=== PATIENT | male | born 1965 | race African-American/Black ===

== ENCOUNTER 2019-08-21 13:40 | Inpatient (IN) | payer OTHER ==
--- NOTE | 2019-08-21 14:25 | BHS.RME ---
Substance Use & Tx History - Substance Use History Alcohol Substance amount: one pint Rum, 6 x 12 ounce beer Frequency of use: Daily Substance route: Oral Date of Last Use: 08/20/19 Opiates (Heroin) Substance amount: 13 bags Frequency of use: Daily Substance route: Inhalation (ex: sniffing or snorting) Date of Last Use: 08/21/19 Cocaine (Crack) Substance amount: $20 Frequency of use: Once a month Substance route: Smoking Date of Last Use: 08/17/19 Physical/Psych/Mental Status - Behavior General Behavior: Decreased activity Eye Contact: Normal - Cooperativeness Cooperativeness: Cooperative - Thinking Thought Processes: Tight Thought content: Future oriented - Physical Health Problems Is patient presently having any pain?: No Does patient presently have any injuries (include location): No Does patient currently have a fever: No COWS - Scale Resting Pulse: 0= [place] 80 or Below Sweatin=Flushed/Facial Moisture Restless Observation: 0= Sits Still Pupil Size: 0= Normal to Room Light Bone or Joint Aches: 1= Mild Discomfort Runny Nose/ Eye Tearin= None GI Upset > 30mins: 0= None Tremor Observation: 1= Tremor [place], Not Seen Yawning Observation: 1= 1-2x During Session Anxiety or Irritability: 1=Feels Anxious/Irritable Goose Flesh Skin: 0=Smooth Skin COWS Score: 6 CIWA Nausea/Vomitin-No Nausea/No Vomiting Muscle Tremors: None Anxiety: 1-Mildly Anxious Agitation: 0-Normal Activity Paroxysmal Sweats: 3 Orientation: 2-Disoriented Date<2 days Tacttile Disturbances: 0-None Auditory Disturbances: 0-None Visual Disturbances: 0-None Headache: 0-None Present CIWA-Ar Total Score: 6
--- NOTE | 2019-08-21 15:43 | HP ---
COWS - Scale Resting Pulse: 0= [place] 80 or Below Sweatin= Beads of Sweat on Face Restless Observation: 1= Difficult to Sit Still Pupil Size: 1= Pupils >than Normal Bone or Joint Aches: 1= Mild Discomfort Runny Nose/ Eye Tearin= Runny Nose/Eyes GI Upset > 30mins: 1= Stomach Cramp Tremor Observation: 2= Slight Tremor Visible Yawning Observation: 2= >3x During Session Anxiety or Irritability: 1=Feels Anxious/Irritable Goose Flesh Skin: 0=Smooth Skin COWS Score: 14 CIWA Score Nausea/Vomitin-Mild Nausea/No Vomiting Muscle Tremors: 3 Anxiety: 2 Agitation: 2 Paroxysmal Sweats: 4-Forehead w/Sweat Beads Orientation: 2-Disoriented Date<2 days Tacttile Disturbances: 0-None Auditory Disturbances: 0-None Visual Disturbances: 0-None Headache: 0-None Present CIWA-Ar Total Score: 14 - Admission Criteria [facility]ASAS Guidelines: Admission for Medically Managed Detox: Requires at least one of the followin. CIWA greater than 12 2. Seizures within the past 24 hours 3. Delirium tremens within the past 24 hours 4. Hallucinations within the past 24 hours 5. Acute intervention needed for co occurring medical disorder 6. Acute intervention needed for co occurring psychiatric disorder 7. Severe withdrawal that cannot be handled at a lower level of care (continued vomiting, continued diarrhea, abnormal vital signs) requiring intravenous medication and/or fluids 8. Admitting History and Physical - Admission Chief Complaint: " I want to get off drugs and stop using." History of Present Illness: 53 year old male with history of alcohol dependence and opioid dependence and crack use disorder. He was last in detox in 04/2019 at [facility] and then relapsed in 06/2019. He is seeking detox and then wants to go immediately to the [facility] long-term program in rehab. Alcohol: 1 pint rum and 6 pack of beers daily, started drinking at age 20 and last drank last night. 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 Heroin: 13 bags of heroin intranasally since the age of [age] years old, last used this morning and denies overdose Crack: $20 once per month, smoking since age 41 years old and last used 3-4 days ago PMH: None Psurg: None Psych: None He is homeless and sometimes lives with sister. He has no legal issues pending. CIWA and COWS are much higher now than on first coming in. He meets criteria for detox due to homelessness and high risk for relapse due to poor environment for recovery and having poor support systems in place for recovery. 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 History of Recent Travel: No Patient History - Patient Medical History Hx Anemia: No Hx Asthma: No Hx Chronic Obstructive Pulmonary Disease (COPD): No Hx Cancer: No Hx Cardiac Disorders: No Hx Congestive Heart Failure: No Hx Hypertension: No Hx Hypercholesterolemia: No Hx Pacemaker: No HX Cerebrovascular Accident: No Hx Seizures: No Hx Dementia: No Hx Diabetes: No Hx Gastrointestinal Disorders: No Hx Liver Disease: No Hx Genitourinary Disorders: No Hx Sexually Transmitted Disorders: No Hx Renal Disease (ESRD): No Hx Thyroid Disease: No Hx Human Immunodeficiency Virus (HIV): No Hx Hepatitis C: No Hx Depression: No Hx Suicide Attempt: No Hx Bipolar Disorder: No Hx Schizophrenia: No - Patient Surgical History Past Surgical History: No - PPD History Previous Implant?: Yes Documented Results: Negative w/o proof Implanted On Prior [facility] Admission?: No Date: 04/16/19 ([facility]) Results: negative PPD to be Administered?: Yes - Smoking Cessation Smoking history: Current every day smoker Have you smoked in the past 12 months: Yes Aproximately how many cigarettes per day: 2 Hx Chewing Tobacco Use: No Initiated information on smoking cessation: Yes 'Breaking Loose' booklet given: 08/21/19 - Substances abused Alcohol Substance route: Oral Amount used: 1 pint rum and beers Age of first use: 20 Date of last use: 08/20/19 Heroin Substance route: Inhalation Frequency: Daily Amount used: 13 bags Age of first use: 37 Date of last use: 08/21/19 Crack Substance route: Smoking Frequency: Daily Amount used: $20 Age of first use: 41 Date of last use: 08/18/19 Admission Physical Exam [facility] - Physical General Appearance: Yes: Mild Distress, Moderate Distress, Tremorous, Irritable, Sweating, Anxious HEENTM: Yes: EOMI, Hearing grossly Normal, Normal ENT Inspection, Normocephalic, Normal Voice, DONNY, Pharynx Normal, Tm's normal Respiratory: Yes: Chest Non-Tender, Lungs Clear, Normal Breath Sounds, No Respiratory Distress, No Accessory Muscle Use Neck: Yes: No masses,lesions,Nodules, Trachea in good position Breast: Yes: Within Normal Limits Cardiology: Yes: Regular Rhythm, Regular Rate, S1, S2 Abdominal: Yes: Normal Bowel Sounds, Non Tender, Flat, Soft Genitourinary: Yes: Within Normal Limits Back: Yes: Normal Inspection Musculoskeletal: Yes: full range of Motion, Gait Steady, Pelvis Stable Extremities: Yes: Normal Capillary Refill, Normal Inspection, Normal Range of Motion, Non-Tender Neurological: Yes: bread baker II-XII NML intact, Fully Oriented, Alert, Motor Strength 5/5, Normal Mood/Affect, Normal Response Integumentary: Yes: Normal Color, Dry, Warm Lymphatic: Yes: Within Normal Limits - Diagnostic (1) Nicotine dependence Current Visit: Yes Status: Acute (2) Cocaine use disorder Current Visit: Yes Status: Acute (3) Alcohol dependence with withdrawal Current Visit: Yes Status: Acute (4) Opioid dependence with withdrawal Current Visit: Yes Status: Acute Cleared for Admission [facility] - Detox or Rehab [facility] Level of Care: Medically Managed Detox Regimen/Protocol: Methadone/Librium Claeared for Rehab Admission: No Screened but not Admitted - Documentation of Visit Screened but not Admitted: No Inpatient Rehab Admission - Rehab Decision to Admit Inpatient rehab admission?: No
[2019-08-21] MEDS ORDERED: MENTHOL/PHENOL 1 EACH UD MM PRN (15:50)
[2019-08-21] MEDS ORDERED: NICOTINE POLACRILEX 2 MG GUM BUC PRN (15:50)
[2019-08-21] MEDS ORDERED: cloNIDine HCL 0.1 MG TABLET PO PRN (15:50)
[2019-08-21] MEDS ORDERED: ACETAMINOPHEN 325 MG TABLET (FP) PO PRN ×2 (15:50)
[2019-08-21] MEDS ORDERED: MAG HYDROX/AL HYDROX/SIMETH 30 ML UNIT-DOSE CUP PO PRN (15:50)
[2019-08-21] MEDS ORDERED: MAGNESIUM HYDROX 2400MG/30ML ORAL SUSPENSION 30 ML CUP PO PRN (15:50)
[2019-08-21] MEDS ORDERED: METHOCARBAMOL 500 MG TABLET PO PRN (15:50)
[2019-08-21] MEDS ORDERED: BISMUTH SUBSALICYLATE 524 MG/30 ML UD PO PRN (15:50)
[2019-08-21] MEDS ORDERED: MAGNESIUM CITRATE 300 ML BOTTLE PO PRN (15:50)
[2019-08-21] MEDS ORDERED: chlordiazePOXIDE HCL 25 MG CAPSULE PO PRN (15:50)
[2019-08-21] MEDS ORDERED: IBUPROFEN 400 MG TABLET (FP) PO PRN (15:50)
[2019-08-21 16:42] VITALS: BMI 24.3
[2019-08-21] MEDS ORDERED: METHADONE HCL 10 MG TABLET (FOR DETOX USE ONLY) PO ONE (17:15)
[2019-08-21] MEDS ORDERED: ONDANSETRON *ODT* 4 MG TABLET SL ONE (17:15)
[2019-08-21] MEDS: PRENATAL VITAMINS W/ FOLIC ACID TABLET (FP) PO SCH (18:00)
[2019-08-21] MEDS: chlordiazePOXIDE HCL 25 MG CAPSULE PO SCH ×2 (18:01→22:11)
[2019-08-21] MEDS: hydrOXYzine PAMOATE 25 MG CAPSULE (FP) PO SCH ×2 (18:03→22:11)
[2019-08-21] MEDS: NICOTINE 7 MG/24 HOURS TOPICAL PATCH TD SCH (18:03)
[2019-08-21] MEDS: MELATONIN 5 MG TABLETS PO SCH (22:10)
[2019-08-21] MEDS: THIAMINE HCL 100 MG TABLET (FP) PO SCH (22:10)
[2019-08-22] MEDS: hydrOXYzine PAMOATE 25 MG CAPSULE (FP) PO SCH ×5 (05:36→22:12)
[2019-08-22] MEDS: chlordiazePOXIDE HCL 25 MG CAPSULE PO SCH ×4 (05:37→22:12)
[2019-08-22] MEDS ORDERED: METHADONE HCL 10 MG TABLET (FOR DETOX USE ONLY) ONE (09:15)
[2019-08-22] MEDS ORDERED: METHADONE HCL 5 MG TABLET (FOR DETOX USE ONLY) ONE (09:15)
[2019-08-22] MEDS ORDERED: METHADONE (DETOX) 20 MG, METHADONE (DETOX) 5 MG PO ONE (10:00)
--- NOTE | 2019-08-22 10:24 | EKG ---
Test Reason : Blood Pressure : / mmHG Vent. Rate : 063 BPM Atrial Rate : 063 BPM P-R Int : 154 ms QRS Dur : 098 ms QT Int : 400 ms P-R-T Axes : 070 038 027 degrees QTc Int : 409 ms NORMAL SINUS RHYTHM MINIMAL VOLTAGE CRITERIA FOR LVH, MAY BE NORMAL VARIANT BORDERLINE ECG NO PREVIOUS ECGS AVAILABLE Confirmed by MD NITESH, BRANDI ([id number]) on 08/22/2019 10:23:47 AM Referred By: Confirmed By:BRANDI DOWLING MD
[2019-08-22] MEDS: PRENATAL VITAMINS W/ FOLIC ACID TABLET (FP) PO SCH (10:36)
[2019-08-22] MEDS: NICOTINE 7 MG/24 HOURS TOPICAL PATCH TD SCH (10:38)
[2019-08-22 10:47] LABS: HEMATOCRIT 37.2 % (35.4-49); HEMOGLOBIN 12.9 GM/dL (11.7-16.9); MCH 34.6 pg (25.7-33.7); MCHC 34.7 g/dl (32.0-35.9); MEAN CELL VOLUME 99.5 fl (80-96); MEAN PLT VOLUME 9.1 fl (7.5-11.1); PLATELET COUNT 211 K/MM3 (134-434); RBC 3.74 M/mm3 (4.00-5.60); RDW 13.9 % (11.9-15.9); WHITE BLOOD COUNT 4.7 K/mm3 (4.0-10.0)
[2019-08-22 10:49] LABS: ALBUMIN 3.2 g/dl (3.4-5.0); BILIRUBIN,TOTAL 0.3 mg/dL (0.2-1); BLOOD UREA NITROGEN 13.1 mg/dL (7-18); CALCIUM 8.9 mg/dL (8.5-10.1); CREATININE 0.9 mg/dL (0.55-1.3); POTASSIUM 4.1 mmol/L (3.5-5.1); TOT PROT 5.9 g/dl (6.4-8.2)
--- NOTE | 2019-08-22 11:58 | PN ---
[facility] CIWA - CIWA Score Nausea/Vomitin-Mild Nausea/No Vomiting Muscle Tremors: 3 Anxiety: 2 Agitation: 0-Normal Activity Paroxysmal Sweats: 2 Orientation: 0-Oriented Tacttile Disturbances: 0-None Auditory Disturbances: 0-None Visual Disturbances: 2-Mild Sensitivity Headache: 1-Very Mild CIWA-Ar Total Score: 11 S COWS - Scale Resting Pulse: 0= [place] 80 or Below Sweatin= Chills/Flushing Restless Observation: 0= Sits Still Pupil Size: 1= Pupils >than Normal Bone or Joint Aches: 1= Mild Discomfort Runny Nose/ Eye Tearin= Nasal Congestion GI Upset > 30mins: 2= Nausea/Diarrhea Tremor Observation of Outstretched Hands: 2= Slight Tremor Visible Yawning Observation: 1= 1-2x During Session Anxiety or Irritability: 2=Irritable/Anxious Goose Flesh Skin: 0=Smooth Skin COWS Score: 11 [facility] Progress Note (SOAP) Subjective: 53 years old male admitted on 08/21/19 for alcohol and opiate withdrawal sx management treating with librium and methadone detox regiments ate breakfast and lunch in room tolerated food and fluid well feeling tired limited conversation with staff Objective: 08/22/19 12:01 Vital Signs Temperature 97 F L 08/22/19 08:52 Pulse Rate 61 08/22/19 08:52 Respiratory Rate 20 08/22/19 08:52 Blood Pressure 118/65 08/22/19 08:52 O2 Sat by Pulse Oximetry (%) 95 08/22/19 06:40 Laboratory Last Values WBC 4.7 K/mm3 (4.0-10.0) 08/22/19 07:30 RBC 3.74 M/mm3 (4.00-5.60) L 08/22/19 07:30 Hgb 12.9 GM/dL (11.7-16.9) 08/22/19 07:30 Hct 37.2 % (35.4-49) 08/22/19 07:30 MCV 99.5 fl (80-96) H 08/22/19 07:30 MCH 34.6 pg (25.7-33.7) H 08/22/19 07:30 MCHC 34.7 g/dl (32.0-35.9) 08/22/19 07:30 RDW 13.9 % (11.9-15.9) 08/22/19 07:30 Plt Count 211 K/MM3 (134-434) 08/22/19 07:30 MPV 9.1 fl (7.5-11.1) 08/22/19 07:30 Sodium 141 mmol/L (136-145) 08/22/19 07:30 Potassium 4.1 mmol/L (3.5-5.1) 08/22/19 07:30 Chloride 109 mmol/L (98-107) H 08/22/19 07:30 Carbon Dioxide 27 mmol/L (21-32) 08/22/19 07:30 Anion Gap 6 MMOL/L (8-16) L 08/22/19 07:30 BUN 13.1 mg/dL (7-18) 08/22/19 07:30 Creatinine 0.9 mg/dL (0.55-1.3) 08/22/19 07:30 Est GFR (CKD-EPI)AfAm 113.41 08/22/19 07:30 Est GFR (CKD-EPI)NonAf 97.85 08/22/19 07:30 Random Glucose 90 mg/dL (74-106) 08/22/19 07:30 Calcium 8.9 mg/dL (8.5-10.1) 08/22/19 07:30 Total Bilirubin 0.3 mg/dL (0.2-1) 08/22/19 07:30 AST 12 U/L (15-37) L 08/22/19 07:30 ALT 14 U/L (13-61) 08/22/19 07:30 Alkaline Phosphatase 94 U/L (45-117) 08/22/19 07:30 Total Protein 5.9 g/dl (6.4-8.2) L 08/22/19 07:30 Albumin 3.2 g/dl (3.4-5.0) L 08/22/19 07:30 lab noted Assessment: 08/22/19 12:02 alcohol and opiate withdrawal Plan: librium and methadone regiments
[2019-08-22] MEDS: MELATONIN 5 MG TABLETS PO SCH (22:12)
[2019-08-22] MEDS: THIAMINE HCL 100 MG TABLET (FP) PO SCH (22:12)
[2019-08-23] MEDS: chlordiazePOXIDE HCL 25 MG CAPSULE PO SCH ×4 (05:24→22:36)
[2019-08-23] MEDS: hydrOXYzine PAMOATE 25 MG CAPSULE (FP) PO SCH ×5 (05:24→22:36)
--- NOTE | 2019-08-23 09:48 | PN ---
[facility] CIWA - CIWA Score Nausea/Vomitin-Mild Nausea/No Vomiting Muscle Tremors: 2 Anxiety: 1-Mildly Anxious Agitation: 0-Normal Activity Paroxysmal Sweats: 2 Orientation: 0-Oriented Tacttile Disturbances: 0-None Auditory Disturbances: 0-None Visual Disturbances: 2-Mild Sensitivity Headache: 0-None Present CIWA-Ar Total Score: 8 [facility] COWS - Scale Resting Pulse: 0= [place] 80 or Below Sweatin= Chills/Flushing Restless Observation: 0= Sits Still Pupil Size: 1= Pupils >than Normal Bone or Joint Aches: 1= Mild Discomfort Runny Nose/ Eye Tearin= Nasal Congestion GI Upset > 30mins: 2= Nausea/Diarrhea Tremor Observation of Outstretched Hands: 1= Tremor [place], Not Seen Yawning Observation: 0= None Anxiety or Irritability: 1=Feels Anxious/Irritable Goose Flesh Skin: 0=Smooth Skin COWS Score: 8 S Progress Note (SOAP) Subjective: 53 years old male admitted on 08/21/19 for alcohol and opiate withdrawal sx management treating with librium and methadone detox regiments ate breakfast tolerated food and fluid well less tremor mild general body aches Objective: 08/23/19 09:48 Vital Signs Temperature 97.5 F L 08/22/19 22:00 Pulse Rate 61 08/22/19 22:00 Respiratory Rate 18 08/23/19 03:25 Blood Pressure 112/68 08/22/19 22:00 O2 Sat by Pulse Oximetry (%) 96 08/22/19 22:00 Laboratory Last Values WBC 4.7 K/mm3 (4.0-10.0) 08/22/19 07:30 RBC 3.74 M/mm3 (4.00-5.60) L 08/22/19 07:30 Hgb 12.9 GM/dL (11.7-16.9) 08/22/19 07:30 Hct 37.2 % (35.4-49) 08/22/19 07:30 MCV 99.5 fl (80-96) H 08/22/19 07:30 MCH 34.6 pg (25.7-33.7) H 08/22/19 07:30 MCHC 34.7 g/dl (32.0-35.9) 08/22/19 07:30 RDW 13.9 % (11.9-15.9) 08/22/19 07:30 Plt Count 211 K/MM3 (134-434) 08/22/19 07:30 MPV 9.1 fl (7.5-11.1) 08/22/19 07:30 Sodium 141 mmol/L (136-145) 08/22/19 07:30 Potassium 4.1 mmol/L (3.5-5.1) 08/22/19 07:30 Chloride 109 mmol/L (98-107) H 08/22/19 07:30 Carbon Dioxide 27 mmol/L (21-32) 08/22/19 07:30 Anion Gap 6 MMOL/L (8-16) L 08/22/19 07:30 BUN 13.1 mg/dL (7-18) 08/22/19 07:30 Creatinine 0.9 mg/dL (0.55-1.3) 08/22/19 07:30 Est GFR (CKD-EPI)AfAm 113.41 08/22/19 07:30 Est GFR (CKD-EPI)NonAf 97.85 08/22/19 07:30 Random Glucose 90 mg/dL (74-106) 08/22/19 07:30 Calcium 8.9 mg/dL (8.5-10.1) 08/22/19 07:30 Total Bilirubin 0.3 mg/dL (0.2-1) 08/22/19 07:30 AST 12 U/L (15-37) L 08/22/19 07:30 ALT 14 U/L (13-61) 08/22/19 07:30 Alkaline Phosphatase 94 U/L (45-117) 08/22/19 07:30 Total Protein 5.9 g/dl (6.4-8.2) L 08/22/19 07:30 Albumin 3.2 g/dl (3.4-5.0) L 08/22/19 07:30 HIV Ag/Ab Combo Qual Negative (NEGATIVE) 08/22/19 07:30 lab noted Assessment: 08/23/19 09:49 alcohol and opiate withdrawal Plan: librium and methadone regiments
[2019-08-23] MEDS ORDERED: METHADONE HCL 10 MG TABLET (FOR DETOX USE ONLY) PO ONE (10:00)
[2019-08-23] MEDS: PRENATAL VITAMINS W/ FOLIC ACID TABLET (FP) PO SCH (10:34)
[2019-08-23] MEDS: NICOTINE 7 MG/24 HOURS TOPICAL PATCH TD SCH (10:36)
[2019-08-23] MEDS: MELATONIN 5 MG TABLETS PO SCH (22:35)
[2019-08-23] MEDS: THIAMINE HCL 100 MG TABLET (FP) PO SCH (22:35)
[2019-08-24] MEDS ORDERED: chlordiazePOXIDE HCL 10 MG CAPSULE PO PRN
[2019-08-24] MEDS: chlordiazePOXIDE HCL 10 MG CAPSULE PO SCH ×4 (06:23→22:11)
[2019-08-24] MEDS: hydrOXYzine PAMOATE 25 MG CAPSULE (FP) PO SCH ×5 (06:23→22:11)
[2019-08-24] MEDS ORDERED: METHADONE (DETOX) 10 MG, METHADONE (DETOX) 5 MG PO ONE (10:00)
[2019-08-24] MEDS ORDERED: METHADONE HCL 5 MG TABLET (FOR DETOX USE ONLY) ONE (10:09)
[2019-08-24] MEDS ORDERED: METHADONE HCL 10 MG TABLET (FOR DETOX USE ONLY) ONE (10:09)
[2019-08-24] MEDS: PRENATAL VITAMINS W/ FOLIC ACID TABLET (FP) PO SCH (10:45)
[2019-08-24] MEDS: NICOTINE 7 MG/24 HOURS TOPICAL PATCH TD SCH (10:46)
--- NOTE | 2019-08-24 12:43 | PN ---
[facility] CIWA - CIWA Score Nausea/Vomitin-No Nausea/No Vomiting Muscle Tremors: None Anxiety: 2 Agitation: 1-Slight > Activity Paroxysmal Sweats: No Perspiration Orientation: 2-Disoriented Date<2 days Tacttile Disturbances: 0-None Auditory Disturbances: 0-None Visual Disturbances: 0-None Headache: 0-None Present CIWA-Ar Total Score: 5 S COWS - Scale Resting Pulse: 0= [place] 80 or Below Sweatin= No chills or Flushing Restless Observation: 1= Difficult to Sit Still Pupil Size: 0= Normal to Room Light Bone or Joint Aches: 1= Mild Discomfort Runny Nose/ Eye Tearin= None GI Upset > 30mins: 0= None Tremor Observation of Outstretched Hands: 0= None Yawning Observation: 0= None Anxiety or Irritability: 1=Feels Anxious/Irritable Goose Flesh Skin: 0=Smooth Skin COWS Score: 3 S Progress Note (SOAP) Subjective: Laboratory Tests 08/22/19 08/22/19 08/22/19 07:30 07:30 07:30 WBC 4.7 RBC 3.74 L Hgb 12.9 Hct 37.2 MCV 99.5 H MCH 34.6 H MCHC 34.7 RDW 13.9 Plt Count 211 MPV 9.1 Sodium 141 Potassium 4.1 Chloride 109 H Carbon Dioxide 27 Anion Gap 6 L BUN 13.1 Creatinine 0.9 Est GFR (CKD-EPI)AfAm 113.41 Est GFR (CKD-EPI)NonAf 97.85 Random Glucose 90 Calcium 8.9 Total Bilirubin 0.3 AST 12 L ALT 14 Alkaline Phosphatase 94 Total Protein 5.9 L Albumin 3.2 L RPR Titer Nonreactive HIV Ag/Ab Combo Qual 08/22/19 07:30 WBC RBC Hgb Hct MCV MCH MCHC RDW Plt Count MPV Sodium Potassium Chloride Carbon Dioxide Anion Gap BUN Creatinine Est GFR (CKD-EPI)AfAm Est GFR (CKD-EPI)NonAf Random Glucose Calcium Total Bilirubin AST ALT Alkaline Phosphatase Total Protein Albumin RPR Titer HIV Ag/Ab Combo Qual Negative Vital Signs - 24 hr 08/23/19 08/23/19 08/23/19 12:56 17:36 20:51 Temperature 97.9 F 97.8 F 97.9 F Pulse Rate 65 66 77 Respiratory 18 18 16 Rate Blood Pressure 127/74 123/76 140/77 O2 Sat by Pulse 97 Oximetry (%) 08/23/19 08/24/19 08/24/19 21:45 08:04 08:55 Temperature 97.5 F L 97.7 F Pulse Rate 74 71 Respiratory 16 18 Rate Blood Pressure 112/65 125/73 O2 Sat by Pulse 98 Oximetry (%) PE Gnl: WDWN, in no distress Mental status: awake, alert, nl language Motor: moves limbs well Coordination: normal Objective: 08/24/19 12:42 Laboratory Tests 08/22/19 08/22/19 08/22/19 07:30 07:30 07:30 WBC 4.7 RBC 3.74 L Hgb 12.9 Hct 37.2 MCV 99.5 H MCH 34.6 H MCHC 34.7 RDW 13.9 Plt Count 211 MPV 9.1 Sodium 141 Potassium 4.1 Chloride 109 H Carbon Dioxide 27 Anion Gap 6 L BUN 13.1 Creatinine 0.9 Est GFR (CKD-EPI)AfAm 113.41 Est GFR (CKD-EPI)NonAf 97.85 Random Glucose 90 Calcium 8.9 Total Bilirubin 0.3 AST 12 L ALT 14 Alkaline Phosphatase 94 Total Protein 5.9 L Albumin 3.2 L RPR Titer Nonreactive HIV Ag/Ab Combo Qual 08/22/19 07:30 WBC RBC Hgb Hct MCV MCH MCHC RDW Plt Count MPV Sodium Potassium Chloride Carbon Dioxide Anion Gap BUN Creatinine Est GFR (CKD-EPI)AfAm Est GFR (CKD-EPI)NonAf Random Glucose Calcium Total Bilirubin AST ALT Alkaline Phosphatase Total Protein Albumin RPR Titer HIV Ag/Ab Combo Qual Negative Vital Signs Temperature 97.7 F 08/24/19 08:55 Pulse Rate 71 08/24/19 08:55 Respiratory Rate 18 08/24/19 08:55 Blood Pressure 125/73 08/24/19 08:55 O2 Sat by Pulse Oximetry (%) 98 08/23/19 21:45 PE Gnl: WDWN Mental status: nl Motor; nl coord; nl Assessment: 08/24/19 12:43 1. Alcohol use disorder 2. Opioid use disorder Plan: 1. Librium withdrawal protocol 2. methadone withdrawal protocol 3. pending discharge 08/25
[2019-08-24] MEDS: THIAMINE HCL 100 MG TABLET (FP) PO SCH (22:11)
[2019-08-24] MEDS: MELATONIN 5 MG TABLETS PO SCH (22:13)
[2019-08-25] MEDS: chlordiazePOXIDE HCL 10 MG CAPSULE PO SCH ×2 (06:01→18:08)
[2019-08-25] MEDS: hydrOXYzine PAMOATE 25 MG CAPSULE (FP) PO SCH ×5 (06:02→22:13)
[2019-08-25] MEDS ORDERED: METHADONE HCL 10 MG TABLET (FOR DETOX USE ONLY) PO ONE (10:00)
[2019-08-25] MEDS: NICOTINE 7 MG/24 HOURS TOPICAL PATCH TD SCH (10:41)
[2019-08-25] MEDS: PRENATAL VITAMINS W/ FOLIC ACID TABLET (FP) PO SCH (10:41)
--- NOTE | 2019-08-25 10:41 | PN ---
[facility] CIWA - CIWA Score Nausea/Vomitin-No Nausea/No Vomiting Muscle Tremors: None Anxiety: 2 Agitation: 0-Normal Activity Paroxysmal Sweats: 2 Orientation: 0-Oriented Tacttile Disturbances: 0-None Auditory Disturbances: 0-None Visual Disturbances: 0-None Headache: 0-None Present CIWA-Ar Total Score: 4 S COWS - Scale Resting Pulse: 0= [place] 80 or Below Sweatin= No chills or Flushing Restless Observation: 0= Sits Still Pupil Size: 0= Normal to Room Light Bone or Joint Aches: 1= Mild Discomfort Runny Nose/ Eye Tearin= None GI Upset > 30mins: 0= None Tremor Observation of Outstretched Hands: 0= None Yawning Observation: 0= None Anxiety or Irritability: 2=Irritable/Anxious Goose Flesh Skin: 0=Smooth Skin COWS Score: 3 [facility] Progress Note (SOAP) Subjective: c/o mild withdrawal symptoms. Objective: 08/25/19 10:40 Vital Signs 08/25/19 08/25/19 08/25/19 03:30 06:25 09:20 Temperature 97.5 F L 97.2 F L Pulse Rate 60 78 Respiratory 16 18 16 Rate Blood Pressure 126/74 127/71 O2 Sat by Pulse 99 Oximetry (%) Laboratory Last Values WBC 4.7 K/mm3 (4.0-10.0) 08/22/19 07:30 RBC 3.74 M/mm3 (4.00-5.60) L 08/22/19 07:30 Hgb 12.9 GM/dL (11.7-16.9) 08/22/19 07:30 Hct 37.2 % (35.4-49) 08/22/19 07:30 MCV 99.5 fl (80-96) H 08/22/19 07:30 MCH 34.6 pg (25.7-33.7) H 08/22/19 07:30 MCHC 34.7 g/dl (32.0-35.9) 08/22/19 07:30 RDW 13.9 % (11.9-15.9) 08/22/19 07:30 Plt Count 211 K/MM3 (134-434) 08/22/19 07:30 MPV 9.1 fl (7.5-11.1) 08/22/19 07:30 Sodium 141 mmol/L (136-145) 08/22/19 07:30 Potassium 4.1 mmol/L (3.5-5.1) 08/22/19 07:30 Chloride 109 mmol/L (98-107) H 08/22/19 07:30 Carbon Dioxide 27 mmol/L (21-32) 08/22/19 07:30 Anion Gap 6 MMOL/L (8-16) L 08/22/19 07:30 BUN 13.1 mg/dL (7-18) 08/22/19 07:30 Creatinine 0.9 mg/dL (0.55-1.3) 08/22/19 07:30 Est GFR (CKD-EPI)AfAm 113.41 08/22/19 07:30 Est GFR (CKD-EPI)NonAf 97.85 08/22/19 07:30 Random Glucose 90 mg/dL (74-106) 08/22/19 07:30 Calcium 8.9 mg/dL (8.5-10.1) 08/22/19 07:30 Total Bilirubin 0.3 mg/dL (0.2-1) 08/22/19 07:30 AST 12 U/L (15-37) L 08/22/19 07:30 ALT 14 U/L (13-61) 08/22/19 07:30 Alkaline Phosphatase 94 U/L (45-117) 08/22/19 07:30 Total Protein 5.9 g/dl (6.4-8.2) L 08/22/19 07:30 Albumin 3.2 g/dl (3.4-5.0) L 08/22/19 07:30 RPR Titer Nonreactive (NONREACTIVE) 08/22/19 07:30 HIV Ag/Ab Combo Qual Negative (NEGATIVE) 08/22/19 07:30 Labs noted. Assessment: AOX3, in no acute respiratory distress. Full ROM, ambulating in the unit. Mild Withdrawal symptoms. Plan: continue detox.
[2019-08-25] MEDS: THIAMINE HCL 100 MG TABLET (FP) PO SCH (22:13)
[2019-08-25] MEDS: MELATONIN 5 MG TABLETS PO SCH (22:13)
[2019-08-26] MEDS ORDERED: chlordiazePOXIDE HCL 10 MG CAPSULE PO ONE (05:00)
[2019-08-26] MEDS: hydrOXYzine PAMOATE 25 MG CAPSULE (FP) PO SCH ×5 (05:13→22:43)
[2019-08-26] MEDS ORDERED: METHADONE HCL 5 MG TABLET (FOR DETOX USE ONLY) PO ONE (06:00)
[2019-08-26] MEDS: NICOTINE 7 MG/24 HOURS TOPICAL PATCH TD SCH (10:24)
[2019-08-26] MEDS: PRENATAL VITAMINS W/ FOLIC ACID TABLET (FP) PO SCH (10:24)
--- NOTE | 2019-08-26 11:47 | PN ---
[facility] CIWA - CIWA Score Nausea/Vomitin-No Nausea/No Vomiting Muscle Tremors: 1-None Visible, but [place] Anxiety: 1-Mildly Anxious Agitation: 0-Normal Activity Paroxysmal Sweats: No Perspiration Orientation: 0-Oriented Tacttile Disturbances: 0-None Auditory Disturbances: 0-None Visual Disturbances: 0-None Headache: 0-None Present CIWA-Ar Total Score: 2 S COWS - Scale Resting Pulse: 0= [place] 80 or Below Sweatin= No chills or Flushing Restless Observation: 0= Sits Still Pupil Size: 0= Normal to Room Light Bone or Joint Aches: 0= None Runny Nose/ Eye Tearin= None GI Upset > 30mins: 1= Stomach Cramp Tremor Observation of Outstretched Hands: 0= None Yawning Observation: 0= None Anxiety or Irritability: 1=Feels Anxious/Irritable Goose Flesh Skin: 0=Smooth Skin COWS Score: 2 S Progress Note (SOAP) Subjective: 53 years old male admitted on 08/21/19 for alcohol and opiate withdrawal sx management treating with librium and methadone regiments feeling better today less tremor mild anxiety mild sweating Objective: 08/26/19 11:50 Vital Signs Temperature 97.1 F L 08/26/19 09:02 Pulse Rate 71 08/26/19 09:02 Respiratory Rate 16 08/26/19 09:02 Blood Pressure 131/74 08/26/19 09:02 O2 Sat by Pulse Oximetry (%) 96 08/26/19 06:31 Laboratory Last Values WBC 4.7 K/mm3 (4.0-10.0) 08/22/19 07:30 RBC 3.74 M/mm3 (4.00-5.60) L 08/22/19 07:30 Hgb 12.9 GM/dL (11.7-16.9) 08/22/19 07:30 Hct 37.2 % (35.4-49) 08/22/19 07:30 MCV 99.5 fl (80-96) H 08/22/19 07:30 MCH 34.6 pg (25.7-33.7) H 08/22/19 07:30 MCHC 34.7 g/dl (32.0-35.9) 08/22/19 07:30 RDW 13.9 % (11.9-15.9) 08/22/19 07:30 Plt Count 211 K/MM3 (134-434) 08/22/19 07:30 MPV 9.1 fl (7.5-11.1) 08/22/19 07:30 Sodium 141 mmol/L (136-145) 08/22/19 07:30 Potassium 4.1 mmol/L (3.5-5.1) 08/22/19 07:30 Chloride 109 mmol/L (98-107) H 08/22/19 07:30 Carbon Dioxide 27 mmol/L (21-32) 08/22/19 07:30 Anion Gap 6 MMOL/L (8-16) L 08/22/19 07:30 BUN 13.1 mg/dL (7-18) 08/22/19 07:30 Creatinine 0.9 mg/dL (0.55-1.3) 08/22/19 07:30 Est GFR (CKD-EPI)AfAm 113.41 08/22/19 07:30 Est GFR (CKD-EPI)NonAf 97.85 08/22/19 07:30 Random Glucose 90 mg/dL (74-106) 08/22/19 07:30 Calcium 8.9 mg/dL (8.5-10.1) 08/22/19 07:30 Total Bilirubin 0.3 mg/dL (0.2-1) 08/22/19 07:30 AST 12 U/L (15-37) L 08/22/19 07:30 ALT 14 U/L (13-61) 08/22/19 07:30 Alkaline Phosphatase 94 U/L (45-117) 08/22/19 07:30 Total Protein 5.9 g/dl (6.4-8.2) L 08/22/19 07:30 Albumin 3.2 g/dl (3.4-5.0) L 08/22/19 07:30 RPR Titer Nonreactive (NONREACTIVE) 08/22/19 07:30 HIV Ag/Ab Combo Qual Negative (NEGATIVE) 08/22/19 07:30 lab noted Assessment: 08/26/19 11:51 alcohol and opiate withdrawal Plan: librium and methadone regiments
[2019-08-26] MEDS: MELATONIN 5 MG TABLETS PO SCH (22:43)
[2019-08-26] MEDS: THIAMINE HCL 100 MG TABLET (FP) PO SCH (22:43)
[2019-08-27] MEDS ORDERED: chlordiazePOXIDE 5 MG CAPSULE PO ONE (05:00)
[2019-08-27] MEDS: hydrOXYzine PAMOATE 25 MG CAPSULE (FP) PO SCH ×2 (05:40→10:50)
[2019-08-27 10:01] VITALS: BP 125/78; PULSE 75; TEMP 97.6
[2019-08-27] MEDS: PRENATAL VITAMINS W/ FOLIC ACID TABLET (FP) PO SCH (10:50)
[2019-08-27] MEDS: NICOTINE 7 MG/24 HOURS TOPICAL PATCH TD SCH (10:51)
--- NOTE | 2019-08-27 10:59 | DS ---
[facility] Detox Discharge Summary Admission Date: 08/21/19 Discharge Date: 08/27/19 - History Present History: Alcohol Dependence, Opioid Dependence Pertinent Past History: Pt admitted for dual detox- completed detox protocols. Pt would like to go to rehab-talking to counselor Vital Signs - 24 hr 08/26/19 08/26/19 08/26/19 12:57 16:52 20:52 Temperature 97.4 F L 98.6 F 97.0 F L Pulse Rate 70 71 78 Respiratory 16 16 18 Rate Blood Pressure 119/69 134/77 125/79 O2 Sat by Pulse 96 97 Oximetry (%) 08/27/19 08/27/19 08/27/19 00:27 03:30 06:37 Temperature 97.1 F L Pulse Rate 103 H Respiratory 18 18 18 Rate Blood Pressure 129/68 O2 Sat by Pulse 98 Oximetry (%) 08/27/19 08:45 Temperature 97.6 F Pulse Rate 75 Respiratory 18 Rate Blood Pressure 125/78 O2 Sat by Pulse Oximetry (%) Laboratory Tests 08/22/19 08/22/19 08/22/19 07:30 07:30 07:30 WBC 4.7 RBC 3.74 L Hgb 12.9 Hct 37.2 MCV 99.5 H MCH 34.6 H MCHC 34.7 RDW 13.9 Plt Count 211 MPV 9.1 Sodium 141 Potassium 4.1 Chloride 109 H Carbon Dioxide 27 Anion Gap 6 L BUN 13.1 Creatinine 0.9 Est GFR (CKD-EPI)AfAm 113.41 Est GFR (CKD-EPI)NonAf 97.85 Random Glucose 90 Calcium 8.9 Total Bilirubin 0.3 AST 12 L ALT 14 Alkaline Phosphatase 94 Total Protein 5.9 L Albumin 3.2 L RPR Titer Nonreactive HIV Ag/Ab Combo Qual 08/22/19 07:30 WBC RBC Hgb Hct MCV MCH MCHC RDW Plt Count MPV Sodium Potassium Chloride Carbon Dioxide Anion Gap BUN Creatinine Est GFR (CKD-EPI)AfAm Est GFR (CKD-EPI)NonAf Random Glucose Calcium Total Bilirubin AST ALT Alkaline Phosphatase Total Protein Albumin RPR Titer HIV Ag/Ab Combo Qual Negative Home Medication List Medication Instructions Recorded Confirmed Type NK [No Known Home Medication] 08/21/19 08/21/19 History Active Medications Generic Name Dose Route Start Last Admin Trade Name Freq PRN Reason Stop Dose Admin Acetaminophen 650 mg 08/21/19 15:50 Tylenol - PO Q6H PRN PAIN LEVEL 4 - 6 Acetaminophen 650 mg 08/21/19 15:50 Tylenol - PO Q6H PRN FEVER Al Hydroxide/Mg Hydroxide 30 ml 08/21/19 15:50 Mylanta Oral Suspension - PO Q6H PRN DYSPEPSIA Bismuth Subsalicylate 524 mg 08/21/19 15:50 Pepto-Bismol - PO Q1H PRN DIARRHEA Eucalyptus/Menthol/Phenol/Sorbitol 1 each 08/21/19 15:50 Cepastat Lozenge - MM 08/27/19 15:50 Q4H PRN SORE THROAT Hydroxyzine Pamoate 25 mg 08/21/19 18:00 08/27/19 10:50 Vistaril - PO 08/27/19 15:50 25 mg Q4HWA JAYRO Administration Ibuprofen 400 mg 08/21/19 15:50 Motrin - PO Q6H PRN PAIN LEVEL 1 - 3 Magnesium Citrate 300 ml 08/21/19 15:50 Citroma - PO Q48H PRN CONSTIPATION Magnesium Hydroxide 30 ml 08/21/19 15:50 Milk Of Magnesia - PO PRN PRN CONSTIPATION Melatonin 5 mg 08/21/19 22:00 08/26/19 22:43 Melatonin PO 5 mg HS JAYRO Administration Methocarbamol 500 mg 08/21/19 15:50 Robaxin - PO 08/27/19 15:50 Q6H PRN MUSCLE SPASMS Nicotine 7 mg 08/21/19 17:15 08/27/19 10:51 Nicoderm Patch - TD Not Given DAILY JAYRO Nicotine Polacrilex 2 mg 08/21/19 15:50 Nicorette Gum - BUC Q2H PRN NICOTINE REPLACEMENT RX Multivit/Folic Acid/Iron 1 tab 08/21/19 16:00 08/27/19 10:50 Vitamins (Sjr) - PO 1 tab DAILY JAYRO Administration Thiamine HCl 100 mg 08/21/19 22:00 08/26/19 22:43 Vitamin B1 - PO 100 mg HS JAYRO Administration a/p: OUD- pt will consider rn long term care MAT with Suboxone - Physical Exam Results Vital Signs: Vital Signs Temperature 97.6 F 08/27/19 08:45 Pulse Rate 75 08/27/19 08:45 Respiratory Rate 18 08/27/19 08:45 Blood Pressure 125/78 08/27/19 08:45 O2 Sat by Pulse Oximetry (%) 98 08/27/19 06:37 - Treatment Hospital Course: Detox Protocol Followed, Detoxed Safely, Responded well, Discharged Condition Good, Rehab Referral Accepted - Medication Discharge Medications: Ambulatory Orders NK [No Known Home Medication] 08/21/19 - AMA Did Patient Leave Against Medical Advice: No
== END 2019-08-27 13:00 | disposition home or self-care (01) | DRG 773 ==
LOC: YASAS 13:40 → Y3N 16:44
PROVIDERS: ADMIT Allergy & Immunology; ATTEND Allergy & Immunology
PROC: HZ2ZZZZ Detoxification Services for Substance Abuse Treatment (ICD-10-PCS; principal; 2019-08-21)
DX: F10.230 Alcohol dependence with withdrawal, uncomplicated (principal); F11.23 Opioid dependence with withdrawal; F14.10 Cocaine abuse, uncomplicated; F17.210 Nicotine dependence, cigarettes, uncomplicated; Z59.0 Homelessness
CPT/HCPCS: 36415; 80053; 85027; 86593; 87389; 93005; 93010

== ENCOUNTER 2022-07-18 12:31 | Inpatient (IN) | payer OTHER ==
[2022-07-18 14:31] VITALS: BMI 23.1
[2022-07-18] MEDS ORDERED: BISMUTH SUBSALICYLATE 524 MG/30 ML PO PRN (17:16)
[2022-07-18] MEDS ORDERED: IBUPROFEN 600 MG TABLET (FP) PO PRN (17:16)
[2022-07-18] MEDS ORDERED: NALOXONE HCL (KLOXXADO) 8 MG SPRAY NS PRN (17:16)
[2022-07-18] MEDS ORDERED: BENZOCAINE/MENTHOL (CHLORASEPTIC ) LOZENGE MM PRN (17:16)
[2022-07-18] MEDS ORDERED: MAG HYDROX/AL HYDROX/SIMETH 30 ML UNIT-DOSE CUP PO PRN (17:16)
[2022-07-18] MEDS ORDERED: MAGNESIUM HYDROX 2400MG/30ML ORAL SUSPENSION 30 ML CUP PO PRN (17:16)
[2022-07-18] MEDS ORDERED: POLYETHYLENE GLYCOL (HEALTHYLAX) 3350 17 GM PACKET PO PRN (17:16)
[2022-07-18] MEDS ORDERED: cloNIDine HCL 0.1 MG TABLET PO PRN (17:16)
[2022-07-18] MEDS ORDERED: chlordiazePOXIDE HCL 25 MG CAPSULE PO PRN (17:16)
[2022-07-18] MEDS ORDERED: IBUPROFEN 400 MG TABLET (FP) PO PRN (17:16)
[2022-07-18] MEDS ORDERED: ACETAMINOPHEN 325 MG TABLET (FP) PO PRN ×2 (17:16)
[2022-07-18] MEDS ORDERED: NICOTINE 10 MG CARTRIDGE (INHALER) IH PRN (17:16)
[2022-07-18] MEDS ORDERED: LOPERAMIDE HCL 2 MG CAPSULE PO PRN (17:16)
[2022-07-18] MEDS ORDERED: DICYCLOMINE HCL 10 MG CAPSULE PO PRN (17:16)
[2022-07-18] MEDS ORDERED: ONDANSETRON *ODT* 4 MG TABLET SL PRN (17:16)
[2022-07-18] MEDS ORDERED: methaDONE HCL 10 MG TABLET (FOR DETOX USE ONLY) PO ONE (17:45)
[2022-07-18] MEDS: THIAMINE HCL 100 MG TABLET (FP) PO SCH (22:44)
[2022-07-18] MEDS: chlordiazePOXIDE HCL 25 MG CAPSULE PO SCH (22:44)
[2022-07-18] MEDS: MELATONIN 5 MG TABLETS PO SCH (22:46)
[2022-07-19] MEDS: chlordiazePOXIDE HCL 25 MG CAPSULE PO SCH ×4 (06:16→22:31)
[2022-07-19] MEDS: PRENATAL VITAMINS W/ FOLIC ACID TABLET (FP) PO SCH (10:11)
[2022-07-19] MEDS: NICOTINE 14 MG/24 HOURS TOPICAL PATCH TD SCH (10:11)
[2022-07-19 12:10] LABS: HEMATOCRIT 39.4 % (35.4-49); HEMOGLOBIN 13.7 GM/dL (11.7-16.9); MCH 34.4 pg (25.7-33.7); MCHC 34.9 g/dl (32.0-35.9); MEAN CELL VOLUME 98.7 fl (80-96); MEAN PLT VOLUME 8.4 fl (7.5-11.1); PLATELET COUNT 251 10^3/uL (134-434); RBC 3.99 M/mm3 (4.00-5.60); RDW 13.9 % (11.9-15.9)
[2022-07-19] MEDS: amLODIPine BESYLATE 2.5 MG TABLET (FP) PO SCH (12:36)
[2022-07-19 12:39] LABS: ALBUMIN 3.7 g/dl (3.4-5.0); BLOOD UREA NITROGEN 14.1 mg/dL (7-18); CALCIUM 9.3 mg/dL (8.5-10.1)
[2022-07-19 12:42] LABS: CREATININE 0.9 mg/dL (0.55-1.3)
[2022-07-19 12:44] LABS: BILIRUBIN,TOTAL 1.1 mg/dL (0.2-1); TOT PROT 6.6 g/dl (6.4-8.2)
[2022-07-19] MEDS: THIAMINE HCL 100 MG TABLET (FP) PO SCH (22:31)
[2022-07-19] MEDS: MELATONIN 5 MG TABLETS PO SCH (22:31)
[2022-07-20] MEDS: chlordiazePOXIDE HCL 25 MG CAPSULE PO SCH ×4 (06:17→22:25)
[2022-07-20] MEDS ORDERED: methaDONE HCL 10 MG TABLET (FOR DETOX USE ONLY) PO ONE (10:00)
[2022-07-20] MEDS: PRENATAL VITAMINS W/ FOLIC ACID TABLET (FP) PO SCH (10:36)
[2022-07-20] MEDS: NICOTINE 14 MG/24 HOURS TOPICAL PATCH TD SCH (10:36)
[2022-07-20] MEDS: amLODIPine BESYLATE 2.5 MG TABLET (FP) PO SCH (10:37)
[2022-07-20] MEDS: MELATONIN 5 MG TABLETS PO SCH (22:25)
[2022-07-20] MEDS: THIAMINE HCL 100 MG TABLET (FP) PO SCH (22:25)
[2022-07-21] MEDS ORDERED: chlordiazePOXIDE HCL 10 MG CAPSULE PO PRN
[2022-07-21] MEDS: chlordiazePOXIDE HCL 10 MG CAPSULE PO SCH ×4 (05:59→22:25)
[2022-07-21] MEDS: amLODIPine BESYLATE 2.5 MG TABLET (FP) PO SCH (10:19)
[2022-07-21] MEDS: PRENATAL VITAMINS W/ FOLIC ACID TABLET (FP) PO SCH (10:19)
[2022-07-21] MEDS: NICOTINE 14 MG/24 HOURS TOPICAL PATCH TD SCH (10:20)
[2022-07-21] MEDS: THIAMINE HCL 100 MG TABLET (FP) PO SCH (22:25)
[2022-07-21] MEDS: MELATONIN 5 MG TABLETS PO SCH (22:25)
[2022-07-22] MEDS: chlordiazePOXIDE HCL 10 MG CAPSULE PO SCH ×2 (05:51→17:34)
[2022-07-22] MEDS ORDERED: methaDONE HCL 10 MG TABLET (FOR DETOX USE ONLY) PO ONE (10:00)
[2022-07-22] MEDS: hydrOXYzine PAMOATE 25 MG CAPSULE (FP) PO PRN (10:18)
[2022-07-22] MEDS: PRENATAL VITAMINS W/ FOLIC ACID TABLET (FP) PO SCH (10:18)
[2022-07-22] MEDS: METHOCARBAMOL 500 MG TABLET PO PRN (10:18)
[2022-07-22] MEDS: amLODIPine BESYLATE 2.5 MG TABLET (FP) PO SCH (10:18)
[2022-07-22] MEDS: NICOTINE 14 MG/24 HOURS TOPICAL PATCH TD SCH (10:20)
[2022-07-22] MEDS: THIAMINE HCL 100 MG TABLET (FP) PO SCH (22:11)
[2022-07-22] MEDS: MELATONIN 5 MG TABLETS PO SCH (22:11)
[2022-07-23] MEDS: METHOCARBAMOL 500 MG TABLET PO PRN (02:52)
[2022-07-23] MEDS: hydrOXYzine PAMOATE 25 MG CAPSULE (FP) PO PRN (02:52)
[2022-07-23] MEDS ORDERED: chlordiazePOXIDE HCL 10 MG CAPSULE PO ONE (05:00)
[2022-07-23 09:41] VITALS: BP 136/67; PULSE 76; RESP 16; TEMP 98.8
[2022-07-23] MEDS: PRENATAL VITAMINS W/ FOLIC ACID TABLET (FP) PO SCH (10:31)
[2022-07-23] MEDS: NICOTINE 14 MG/24 HOURS TOPICAL PATCH TD SCH (10:31)
[2022-07-23] MEDS: amLODIPine BESYLATE 2.5 MG TABLET (FP) PO SCH (10:31)
== END 2022-07-23 10:02 | disposition home or self-care (01) | DRG 773 ==
LOC: YASAS 12:31 → Y6N 17:26
PROVIDERS: ADMIT Allergy & Immunology; ATTEND Surgery
PROC: HZ2ZZZZ Detoxification Services for Substance Abuse Treatment (ICD-10-PCS; principal; 2022-07-18)
DX: F11.23 Opioid dependence with withdrawal (principal); F10.230 Alcohol dependence with withdrawal, uncomplicated; F14.20 Cocaine dependence, uncomplicated; F17.210 Nicotine dependence, cigarettes, uncomplicated; F41.9 Anxiety disorder, unspecified; F32.A Depression, unspecified; F51.05 Insomnia due to other mental disorder; R03.0 Elevated blood-pressure reading, without diagnosis of hypertension
CPT/HCPCS: 36415; 80053; 85027; 86780; C9803-CS; U0003; U0005